=== PATIENT | female | born 2000 | race African-American/Black ===

== ENCOUNTER → 2022-09-10 | Outpatient (CLI) | payer OTHER ==
[~2022-09-10] MED LIST: NORCO 325 MG-51 TAB PO
--- NOTE | 2022-09-10 11:39 | NUR ---
PT IN NUCLEAR MED FOR GALLBLADDER EVALUATION, IV SITE WITHOUT COMPLICATIONS, PT HAS NO ALLERGIES, GIVEN OVER 1 MIN, NO CHANGES NOTED
== END ==
LOC: COL.RAD 09:36
DX: R10.11 Right upper quadrant pain (principal)
CPT/HCPCS: A9537; J2270; J2805